=== PATIENT | male | born 1970 | race Caucasian/White ===

== ENCOUNTER 2018-03-24 17:06 | Emergency (ER) | payer MEDICAID, OTHER ==
[2018-03-24] MEDS: LACTATED RINGER'S 1,000 ML IV ×2 (19:02→20:13)
[2018-03-24] MEDS: morphine 4 MG/ML VIAL IV (19:02)
[2018-03-24] MEDS: ONDANSETRON 4 MG INJ IV (19:02)
[2018-03-24] MEDS: HYDROmorphONE 2 MG/ML SYG IV (19:32)
[2018-03-24] MEDS: PROPOFOL 200 MG INJ IV ×2 (20:51→20:54)
== END 2018-03-24 23:00 | disposition home or self-care (01) ==
LOC: E/R 17:06
DX: S52.502A Unspecified fracture of the lower end of left radius, initial encounter for closed fracture (principal); W01.0XXA Fall on same level from slipping, tripping and stumbling without subsequent striking against object, initial encounter; Y92.9 Unspecified place or not applicable
CPT/HCPCS: 25605; 73110-LT; 73130-LT; 94770; 96374; 96375; 99285-25